=== PATIENT | male | born 1980 | race Caucasian/White ===

== ENCOUNTER 2025-01-28 18:54 | Emergency (ER) | payer OTHER, BC ==
[~2025-01-28] VITALS: Ht 167.6 cm; Wt 82.0 kg
[2025-01-28 18:58] VITALS: O2SAT 98
[2025-01-28] MEDS: ACETAMINOPHEN 325MG TABLET PO ONE (22:18)
[2025-01-28] MEDS: KETOROLAC 15MG/ML VIAL IM ONE (22:35)
[2025-01-28] MEDS: TETRACAINE 0.5% OPHTH DROPS 4ML BOTHEYE ONE (22:45)
[2025-01-28] MEDS: FLUORESCEIN SODIUM 1MG/STRIP LEFTEYE ONE (22:45)
[2025-01-28] MEDS ORDERED: LIDO-53 TP (22:51)
[2025-01-28] MEDS ORDERED: NAPR-1176 MT (22:51)
[2025-01-28 23:52] VITALS: BP 133/86; PULSE 60; RESP 16; TEMP 36.5; O2SAT 99
== END 2025-01-28 23:53 | disposition home or self-care (01) ==
LOC: ER 18:54
DX: S52.611A Displaced fracture of right ulna styloid process, initial encounter for closed fracture (principal); R51.9 Headache, unspecified; Z79.1 Long term (current) use of non-steroidal anti-inflammatories (NSAID); V89.2XXA Person injured in unspecified motor-vehicle accident, traffic, initial encounter; Y93.89 Activity, other specified; Y99.8 Other external cause status; Y92.410 Unspecified street and highway as the place of occurrence of the external cause
CPT/HCPCS: 99284; 73080; 73110; 29125; 96372; J1885